=== PATIENT | female | born 1980 | race Hispanic/Latino ===

== ENCOUNTER 2019-02-16 09:54 | Emergency (ER) | payer BC, SELFPAY ==
[2019-02-16] MEDS ORDERED: Ibuprofen 800 MG TAB ONE (10:53)
== END 2019-02-16 10:47 | disposition home or self-care (01) ==
LOC: ERS 09:54
DX: K08.89 Other specified disorders of teeth and supporting structures (principal); R51 Headache; F41.9 Anxiety disorder, unspecified; F32.9 Major depressive disorder, single episode, unspecified
CPT/HCPCS: 99282